=== PATIENT | male | born 1990 | race Caucasian/White ===

== ENCOUNTER → 2018-02-21 | Outpatient (CLI) | payer SELFPAY ==
--- NOTE | 2018-02-21 08:33 | Diagnostic Imaging Report ---
Left knee MRI without contrast. History: Knee pain. Decreased range of motion. Pain worse with running. Swelling. Comparison: None. Technique: Multiplanar multi-sequence MRI of the knee without contrast. Findings: Medial compartment: No meniscal tear, cartilage abnormality, or MCL tear. There is a moderate amount of bone marrow edema in the medial proximal tibia with a small focus of decreased T1 signal intensity best seen on coronal series 6 image 15. This is consistent with a contusion/ nondisplaced microtrabecular fracture through the bone marrow. No cortical fracture is seen. Lateral compartment: No meniscal tear or cartilage abnormality. The LCL complex is normal. Intercondylar notch: The ACL and PCL are intact. Patellofemoral compartment: No chondromalacia or patellar dislocation. Extensor mechanism: The quadriceps and patellar tendons are normal. Other findings: There is a joint effusion and synovitis. There is no acute fracture, subluxation or avascular necrosis. IMPRESSION: Moderate amount of bone marrow edema in the medial proximal tibia with a small focus of decreased T1 signal intensity consistent with a contusion/ nondisplaced microtrabecular fracture through the bone marrow. No cortical fracture is seen. No meniscal tear, collateral ligament tear or cruciate ligament tear. Signed by: Dr. John Knox M.D. on 02/21/2018 8:29 AM
== END ==
LOC: MRI 06:56
PROVIDERS: ATTEND Internal Medicine
DX: M25.562 Pain in left knee (principal); M25.462 Effusion, left knee; M65.862 Other synovitis and tenosynovitis, left lower leg